=== PATIENT | male | born 1980 | race Caucasian/White ===

== ENCOUNTER 2019-06-05 10:51 | Emergency (ER) | payer BC ==
[2019-06-05] MEDS ORDERED: IV NS 0.9% 1,000 ML BAG IV ONE (12:00)
== END 2019-06-05 13:19 | disposition home or self-care (01) ==
DX: R55 Syncope and collapse (principal); R42 Dizziness and giddiness; F41.9 Anxiety disorder, unspecified; F12.10 Cannabis abuse, uncomplicated
CPT/HCPCS: 36415; 70450; 71045; 80048; 85025; 93005; 96360; 99284; J7030